=== PATIENT | female | born 1945 | race Caucasian/White ===

== ENCOUNTER 2017-01-03 08:29 | Outpatient (CLI) | payer MEDICARE, OTHER ==
[2017-01-03 19:08] LABS: ALBUMIN/GLOBULIN RATIO 1.6 (1.0-2.2); BILIRUBIN,TOTAL 0.8 mg/dL (0.2-1.0); BUN - BLOOD UREA NITROGEN 19 mg/dL (6-20); CALCIUM 8.7 mg/dL (8.5-10.3); CARBON DIOXIDE - CO2 27 mmol/L (21-32); CHLORIDE 106 mmol/L (101-111); CHOL/HDL RATIO 3.7 (<4.4); CHOLESTEROL 136 mg/dL; CREATININE 0.8 mg/dL (0.4-1.0); GFR - MDRD 71 (>89); GLUCOSE 87 mg/dL (70-100); HDL CHOLESTEROL 37 mg/dL; LDL/HDL RATIO 1.9 (<4.4); POTASSIUM 3.8 mmol/L (3.5-5.0); SODIUM 140 mmol/L (135-145); TOTAL PROTEIN 6.7 g/dL (6.7-8.2); TRIGLYCERIDES 138 mg/dL; VLDL CHOLESTEROL 28 mg/dL
== END 2017-01-03 08:30 | disposition home or self-care (01) ==
LOC: LAB.S 08:29
PROVIDERS: ATTEND Family Medicine
DX: E78.5 Hyperlipidemia, unspecified (principal); E03.9 Hypothyroidism, unspecified; I10 Essential (primary) hypertension
CPT/HCPCS: 36415; 80053; 80061; 84443

== ENCOUNTER 2017-01-07 10:27 | Outpatient (CLI) | payer MEDICARE, OTHER ==
--- NOTE | 2017-01-10 15:39 | Mammography Report ---
DIGITAL SCREENING MAMMOGRAM: 01/07/2017 CLINICAL INDICATION: A 71-year-old with history of benign biopsy, for screening. COMPARISON: 09/2015, 08/2014, 07/2013, 07/2012. TECHNIQUE: Routine CC and MLO projections were obtained of the breasts. FINDINGS: The breasts demonstrate heterogeneously dense fibroglandular parenchyma bilaterally. Coars e and punctate, typically benign calcifications are present. No suspicious masses, clustered microcal cifications, or regions of architectural distortion are identified. IMPRESSION: BENIGN FINDINGS. RECOMMENDATION: ROUTINE ANNUAL SCREENING UNLESS OTHERWISE CLINICALLY INDICATED. BIRADS CATEGORY 2-BENIGN FINDINGS. STANDARD QUALIFYING STATEMENTS 1. This examination was reviewed with the aid of Computer-Aided Detection (CAD). 2. A negative or benign imaging report should not delay biopsy if clinically suspicious findings are present. Consider surgical consultation if warranted. More than 5% of cancers are not identified by i maging. 3. Dense breasts may obscure an underlying neoplasm. JOB #: [id number] EXT JOB #:[id number]
== END 2017-01-07 10:28 | disposition home or self-care (01) ==
LOC: DI.S 10:27
PROVIDERS: ATTEND Family Medicine
DX: Z12.31 Encounter for screening mammogram for malignant neoplasm of breast (principal)
CPT/HCPCS: 77067

== ENCOUNTER 2017-01-10 08:00 | Outpatient (CLI) | payer MEDICARE, OTHER ==
[2017-01-10 18:18] LABS: THYROID STIMULATING HORMONE 5.36 uIU/mL (0.34-5.60)
== END 2017-01-10 08:01 | disposition home or self-care (01) ==
LOC: LAB.S 08:00
PROVIDERS: ATTEND Family Medicine
DX: E03.9 Hypothyroidism, unspecified (principal)
CPT/HCPCS: 36415; 84439; 84443; 84481

== ENCOUNTER 2018-01-16 09:15 | Outpatient (CLI) | payer MEDICARE, OTHER ==
--- NOTE | 2018-01-17 12:58 | DEXA Report ---
Reason: SCREENING Procedure Date: 01/16/2018 Accession Number: [id number] / [id number] Procedure: DEX - Dexa Spine and/or Hip CPT Code: FULL RESULT: EXAM: Dexa Spine and/or Hip DATE: 01/16/2018 9:55 AM CLINICAL HISTORY: SCREENING. Hormone replacement therapy. TECHNIQUE: Dual energy x-ray absorptiometry (DXA) was performed on a [employer] Capture System. Regions measured are the AP Spine, femoral neck, and if needed forearm. COMPARISON: None. In accordance with the International Society for Clinical Densitometry (ISCD) guidelines, data from previous exams may be reanalyzed using current recommendations and techniques. This is done to allow a more accurate basis for comparison with the current study. FINDINGS: The data for the lumbar spine is as follows: BMD (g/cm/cm) T-SCORE Z-SCORE REGION L1 0.984 -1.2 0.0 L2 1.228 0.2 1.4 L3 1.266 0.5 1.7 L4 1.238 0.3 1.5 TOTAL 1.185 0.0 1.2 NOTE: All evaluable vertebrae are used for classification The data for the hip is as follows: BMD (g/cm/cm) T-SCORE Z-SCORE REGION Neck 0.977 -0.4 1.0 TOTAL 1.012 0.0 1.2 NOTE: The femoral neck or total proximal femur, whichever is lowest, is used for classification. IMPRESSION: THE WHO CLASSIFICATION BASED ON THE INTERNATIONAL REFERENCE STANDARD IS NORMAL. THE FRACTURE RISK IS NOT INCREASED. RECOMMENDATION: Patients with diagnosis of osteoporosis or osteopenia should have regular bone mineral density assessment. For those eligible for Medicare, routine testing is allowed once every 2 years. Testing frequency can be increased for patients who have rapidly progressing disease or for those who are receiving medical therapy to restore bone mass. COMMENT: World Health Organization (WHO) definitions for osteoporosis and osteopenia: NORMAL BMD: T-score at -1.0 or higher, fracture risk is low OSTEOPENIA BMD: T-score between -1.0 and -2.5, fracture risk is increased. OSTEOPOROSIS BMD: T-score at -2.5 or lower, fracture risk is high. National Osteoporosis Foundation recommends: 1. Obtain adequate dietary calcium (at least 1200 mg per day) and vitamin D (400-800 international units per day). 2. Participate, as appropriate, in regular weightbearing and muscle-strengthening exercise. 3. Avoid tobacco use and reduce alcohol and caffeine intake. 4. For more detailed information see the website at www.NOF.org.
== END 2018-01-16 09:16 | disposition home or self-care (01) ==
LOC: DI 09:15
PROVIDERS: ATTEND Family Medicine
DX: Z13.820 Encounter for screening for osteoporosis (principal); N95.8 Other specified menopausal and perimenopausal disorders
CPT/HCPCS: 77080

== ENCOUNTER 2018-01-16 09:19 | Outpatient (CLI) | payer MEDICARE, OTHER ==
--- NOTE | 2018-01-17 12:17 | Mammography Report ---
Reason: SCREEN wTOMO Procedure Date: 01/16/2018 Accession Number: [id number] / [id number] Procedure: MONSERRAT - Screening Mammo w/Jr CPT Code: FULL RESULT: EXAM: Screening Mammo w/Jr DATE: 01/16/2018 10:11 AM CLINICAL HISTORY: Prior history of benign biopsy, for routine screening TECHNIQUE: Bilateral CC and MLO views were obtained. COMPARISON: 12/14/2016, 09/27/2014, 09/26/2013 and 09/19/2012 FINDINGS: The breast tissue is heterogeneously dense. On the left there is a lobulated subareolar nodular density at 9:00 with increasing calcifications CC tomographic image 43, MLO tomographic image 37, which may represent a calcifying fibroadenoma. Suggest further evaluation by magnification views and ultrasound. In the left breast approximately 7 cm from the nipple in the 9:00 position is a 1 cm nodular density best seen on MLO tomographic image 51 and CC tomographic image 42. This is been present on prior images and appears stable but suggest further evaluation by ultrasound. Otherwise no new or suspicious findings noted. IMPRESSION: Needs additional evaluation bilateral breasts. RECOMMENDATION: Additional magnification views and ultrasound right breast and ultrasound left breast. BIRADS CATEGORY 0: Needs additional evaluation. STANDARD QUALIFYING STATEMENTS: 1. This examination was not reviewed with the aid of Computer-Aided Detection (CAD). 2. A negative or benign imaging report should not delay biopsy if clinically suspicious findings are present. Consider surgical consultation if warrented. More than 5% of cancers are not identified by imaging. 3. Dense breasts may obscure an underlying neoplasm. 4. This examination was reviewed with the aid of 3D breast imaging (tomosynthesis).
== END 2018-01-16 09:20 | disposition home or self-care (01) ==
LOC: DI 09:19
PROVIDERS: ATTEND Family Medicine
DX: Z12.31 Encounter for screening mammogram for malignant neoplasm of breast (principal); R92.8 Other abnormal and inconclusive findings on diagnostic imaging of breast
CPT/HCPCS: 77063; 77067

== ENCOUNTER 2018-02-06 09:54 | Outpatient (CLI) | payer MEDICARE, OTHER ==
--- NOTE | 2018-02-06 14:19 | Mammography Report ---
Reason: FOLLOW UP TO ABNORMAL SCREENING Procedure Date: 02/06/2018 Accession Number: [id number] / [id number] Procedure: MONSERRAT - Diag Special Views Dig RT CPT Code: FULL RESULT: EXAM: Diag Special Views Dig RT DATE: 02/06/2018 11:02 AM CLINICAL HISTORY: 72-year-old female recalled from screening mammogram for findings in both breasts. TECHNIQUE: Right spot magnified CC and spot magnified MLO views were obtained. Bilateral focused breast ultrasound was performed. COMPARISON: 01/16/2018, 01/07/2017, 09/08/2015, 08/22/2014. FINDINGS: The breasts demonstrate heterogeneously dense fibroglandular parenchyma bilaterally. Spot mammographic views of the right breast confirmed the previously suspected mass with increasing coarse calcifications. Comparison over time with today's spot imaging is most compatible with involuting fibroadenoma, typically benign. Focused breast ultrasound findings of the right breast findings are compatible with the diagnosis. Focused breast ultrasound of the left breast finding identifies a simple cyst which corresponds to the mammographic finding and is concordant. This is a typically benign finding. IMPRESSION: Benign findings RECOMMENDATION: Recommend routine annual Screening mammography unless otherwise clinically indicated. BIRADS CATEGORY 2: Benign findings STANDARD QUALIFYING STATEMENTS: 1. This examination was not reviewed with the aid of Computer-Aided Detection (CAD). 2. A negative or benign imaging report should not delay biopsy if clinically suspicious findings are present. Consider surgical consultation if warrented. More than 5% of cancers are not identified by imaging. 3. Dense breasts may obscure an underlying neoplasm.
== END 2018-02-06 09:55 | disposition home or self-care (01) ==
LOC: DI 09:54
PROVIDERS: ATTEND Family Medicine
DX: R92.2 Inconclusive mammogram (principal)
CPT/HCPCS: 76642

== ENCOUNTER 2019-03-06 14:12 | Outpatient (CLI) | payer MEDICARE, OTHER ==
--- NOTE | 2019-03-07 11:54 | Mammography Report ---
Reason: ANNUAL SCREENING Procedure Date: 03/06/2019 Accession Number: [id number] / [id number] Procedure: MONSERRAT - Screening Mammo w/Jr CPT Code: Final Report FULL RESULT: EXAM: Screening Mammo w/Jr DATE: 03/06/2019 3:14 PM CLINICAL HISTORY: The patient is an asymptomatic 73-year-old female. Second degree family history of breast cancer. TECHNIQUE: (B) - Bilateral CC and MLO views were obtained. COMPARISON: 01/16/2018, 01/07/2017, 09/08/2015, 08/22/2014 and 07/22/2013 PARENCHYMAL PATTERN: (D) - The breasts demonstrate heterogeneously dense fibroglandular parenchyma bilaterally. FINDINGS: Stable bilateral nodularity. Scattered and loosely grouped calcifications again noted. There are no suspicious masses, calcifications, or areas of distortion. IMPRESSION: Benign findings. BI-RADS category 2. RECOMMENDATION: (ANNUAL) - Recommend routine annual screening mammography. BI-RADS CATEGORY: (2) - Benign Findings. STANDARD QUALIFYING STATEMENTS: 1. This examination was not reviewed with the aid of Computer-Aided Detection (CAD). 2. A negative or benign imaging report should not preclude biopsy if clinically suspicious findings are present. 3. Dense breasts may obscure an underlying neoplasm. 4. This examination was reviewed with the aid of 3D breast imaging (tomosynthesis).
== END 2019-03-06 14:13 | disposition home or self-care (01) ==
LOC: DI 14:12
PROVIDERS: ATTEND Family Medicine
DX: Z12.31 Encounter for screening mammogram for malignant neoplasm of breast (principal); Z80.3 Family history of malignant neoplasm of breast
CPT/HCPCS: 77063; 77067

== ENCOUNTER 2023-10-29 12:54 | Outpatient (CLI) | payer MEDICARE | END 2023-10-29 12:55 | disposition home or self-care (01) | LOC: DI 12:54 | PROVIDERS: ATTEND Psychiatry & Neurology Neurology | DX: R41.3 Other amnesia (principal); Z53.9 Procedure and treatment not carried out, unspecified reason ==

== ENCOUNTER 2025-03-26 09:41 | Inpatient (IN) ==
--- NOTE | 2025-03-26 11:17 | ED Physician Documentation ---
PD HPI NVD Stated complaint Stated Complaint: ABD PX, DIARRHEA, TARRY STOOL Chief complaint Chief Complaint: Abd Pain History obtained from History obtained from: Patient and Family Additonal information Additional information: 79-year-old female with a month-long history of diarrhea that has been profuse has now developed some black tarry diarrhea as well. She has not had improvement in her symptoms despite multiple home remedies. The patient has advanced dementia and is a poor historian. Most of the history is taken from the spouse who indicates that they are generally conservative and do not wish any heroics. The patient's spouse has brought the patient to the emergency department with persistent symptoms of severe diarrhea. Despite the attempt at control of diarrhea with [id number] preparations and prescription preparations no control has been successful. [place] Coma Scale Assess Eye opening: Spontaneous Verbal response: Confused Motor response: Obeys Commands Total score: 14 Review of Systems Patient has had profuse watery smelly diarrhea that has been dark and tarry despite stopping Pepto-Bismol. She has not had fever she does have cough she denies chest pain or shortness of breath. Meds/Allgy Allergies Allergies Allergy/AdvReac Type Severity Reaction Status Date / Time No Known Drug Allergies Allergy Verified 03/26/25 09:58 PFSH Active Problems All Active Problems (Updated 03/26/25 @ 15:48 by Mendoza Epps MD) Symptomatic anemia (Acute) Hypokalemia (Acute) Hyponatremia (Acute) Dementia (Chronic) Colitis (Acute) Social History Social History (Updated 03/26/25 @ 12:02 by Aruna Badillo RN) Smoking Status: Never smoker Second hand tobacco smoke exposure: No Do you dip or chew tobacco?: No Do you vape?: No Patient requests smoking cessation consult: No Initiate information on smoking cessation: No Living arrangement: At home Do you feel safe in your home environment?: Yes History of physical, verbal, emotional, or financial abuse?: No Are you sexually active?: No Exam Exam Vital Signs: Vital Signs x48h Temp Pulse Pulse Resp BP BP Pulse Ox 03/26/25 15:24 36.5 C 68 18 100/75 97 03/26/25 15:15 36.6 C 65 18 91/51 L 97 03/26/25 14:45 36.6 C 69 18 95/51 L 97 03/26/25 14:15 36.5 C 66 18 109/48 L 97 03/26/25 14:00 68 20 92/60 98 03/26/25 13:45 36.5 C 73 18 90/50 L 98 03/26/25 13:25 36.5 C 70 18 94/52 L 98 03/26/25 13:06 36.5 C 69 25 H 89/48 L 99 03/26/25 12:51 66 18 82/47 L 98 03/26/25 12:04 62 18 87/44 L 94 03/26/25 09:55 36.7 C 72 16 70/44 L 99 Pale appearing 79-year-old female with a blank stare consistent with dementia does interact immediately with good eye contact and smile. She is profoundly pale conjunctive are pale. She critically has blood pressure of 70/44 remainder of her vitals are normal. Constitutional Pale appearing with a vacant stare but interactive with a smile HENMT normocephalic, head/scalp atraumatic and hearing grossly normal bilaterally Eyes PERRL and EOMs intact bilaterally Patient has had surgery to both eyes lens implants are visible Respiratory breath sounds equal bilaterally, normal respiratory effort and clear to auscultation bilaterally Cardiovascular normal heart rate noted, regular rhythm noted and no murmur Gastrointestinal abdomen normal to inspection, abdomen soft to palpation and nontender to palpation Genitourinary no CVA tenderness Stool is dark gandhi and guaiac negative. Back/Pelvis spine normal to inspection Extremities normal to inspection Neurology senior partner II-XII intact Psychiatry mental status abnormal, orientation abnormal, thought process abnormality noted, cooperative, affect normal, psychomotor activity normal and memory abnormal Skin skin color abnormal (pale) Results Vitals Vitals: Vital Signs - 24 hr 03/26/25 09:55 03/26/25 09:57 03/26/25 12:04 Temperature 36.7 C Temperature Source Temporal Artery Scan Pulse Rate 72 62 Pulse Rate [Monitoring electrodes] Respiratory Rate 16 18 Blood Pressure 70/44 L 87/44 L Blood Pressure [Left Automatic] O2 Saturation 99 94 O2 Source Room air Room air Sedation scale Pain Intensity 6 5 03/26/25 12:51 03/26/25 13:06 03/26/25 13:25 Temperature 36.5 C 36.5 C Temperature Source Temporal Artery Scan Temporal Artery Scan Pulse Rate 66 Pulse Rate [Monitoring electrodes] 69 70 Respiratory Rate 18 25 H 18 Blood Pressure 82/47 L Blood Pressure [Left Automatic] 89/48 L 94/52 L O2 Saturation 98 99 98 O2 Source Room air Room air Room air Sedation scale 0-Fully awake 0-Fully awake Pain Intensity 0 0 03/26/25 13:45 03/26/25 14:00 03/26/25 14:15 Temperature 36.5 C 36.5 C Temperature Source Temporal Artery Scan Temporal Artery Scan Pulse Rate 68 Pulse Rate [Monitoring electrodes] 73 66 Respiratory Rate 18 20 18 Blood Pressure 92/60 Blood Pressure [Left Automatic] 90/50 L 109/48 L O2 Saturation 98 98 97 O2 Source Room air Room air Room air Sedation scale 0-Fully awake 0-Fully awake Pain Intensity 0 0 0 03/26/25 14:45 03/26/25 15:15 03/26/25 15:24 Temperature 36.6 C 36.6 C 36.5 C Temperature Source Temporal Artery Scan Temporal Artery Scan Temporal Artery Scan Pulse Rate Pulse Rate [Monitoring electrodes] 69 65 68 Respiratory Rate 18 18 18 Blood Pressure Blood Pressure [Left Automatic] 95/51 L 91/51 L 100/75 O2 Saturation 97 97 97 O2 Source Room air Room air Room air Sedation scale 0-Fully awake 0-Fully awake 0-Fully awake Pain Intensity 0 0 0 Oxygen O2 Source Room air Labs Labs: Laboratory Tests 03/26/25 03/26/25 03/26/25 10:35 10:35 11:33 WBC 5.7 RBC 2.74 L Hgb 7.1 L Hct 22.8 L MCV 83.2 MCH 25.9 L MCHC 31.1 L RDW 16.6 H Plt Count 276 MPV 8.8 Neut # (Auto) Not Reportable Lymph # (Auto) Not Reportable [place] # (Auto) Not Reportable Eos # (Auto) Not Reportable Baso # (Auto) Not Reportable Absolute Nucleated RBC Not Reportable Total Counted 100 Band Neuts % (Manual) 14 H Reactive Lymphs % (Man) 3 Abnorm Lymph % (Manual) 0 Nucleated RBC % Not Reportable Neutrophils # (Manual) 4.4 Lymphocytes # (Manual) 0.5 L Monocytes # (Manual) 0.8 Eosinophils # (Manual) 0.0 Basophils # (Manual) 0.0 Differential Comment MANUAL DIFFERENTIAL Manual Slide Review Indicated WBC Morphology 1+ TOXIC G Platelet Estimate NORMAL (130-450,000) Platelet Morphology NORMAL APPEARANCE RBC Morph Micro Appear 1+ ANISOCYTOSIS 1+ MICROCYTOSIS VBG pH 7.433 H VBG pCO2 35.9 L VBG pO2 39.4 VBG HCO3 24.2 VBG Total CO2 25.3 VBG O2 Saturation 41.0 L VBG Base Excess -0.3 Sodium 129 L Potassium 3.4 L Chloride 98 L Carbon Dioxide 24 Anion Gap 7.0 BUN 29 H Creatinine 1.1 Estimated GFR (MDRD) 48 L Glucose 113 H Lactic Acid 1.3 Calcium 7.9 L Magnesium 1.7 Total Bilirubin 0.8 AST 17 ALT 13 Alkaline Phosphatase 65 Total Protein 5.1 L Albumin 2.5 L Globulin 2.6 Albumin/Globulin Ratio 1.0 Lipase < 10 L Stl Occult Blood (IFOB) Blood Type O POSITIVE Blood Type Recheck O POSITIVE Antibody Screen NEGATIVE Crossmatch IS Only See Detail 03/26/25 14:16 WBC RBC Hgb Hct MCV MCH MCHC RDW Plt Count MPV Neut # (Auto) Lymph # (Auto) [place] # (Auto) Eos # (Auto) Baso # (Auto) Absolute Nucleated RBC Total Counted Band Neuts % (Manual) Reactive Lymphs % (Man) Abnorm Lymph % (Manual) Nucleated RBC % Neutrophils # (Manual) Lymphocytes # (Manual) Monocytes # (Manual) Eosinophils # (Manual) Basophils # (Manual) Differential Comment Manual Slide Review WBC Morphology Platelet Estimate Platelet Morphology RBC Morph Micro Appear VBG pH VBG pCO2 VBG pO2 VBG HCO3 VBG Total CO2 VBG O2 Saturation VBG Base Excess Sodium Potassium Chloride Carbon Dioxide Anion Gap BUN Creatinine Estimated GFR (MDRD) Glucose Lactic Acid Calcium Magnesium Total Bilirubin AST ALT Alkaline Phosphatase Total Protein Albumin Globulin Albumin/Globulin Ratio Lipase Stl Occult Blood (IFOB) NEGATIVE Blood Type Blood Type Recheck Antibody Screen Crossmatch IS Only Rads (name of study) CTA ab/pel bleeding study: Relevant Findings:: Prelim report reviewed and EMP independent interpretation of test (stool burden and thickened bowel wall. ) Interpretation: Impression: Segmental colitis extending from the distal descending colon through the rectum. It is relatively impressive. Consider infectious versus inflammatory causes. This portion of the colon is rarely involved by ischemic colitis. Proximal to the distal diseased segment, there is a large fecal load. No acute hemorrhage identified. Procedures IVC sono (time) 1110: Bedside IVC sono: IVC measures (cm) (0.53), Low CVP and Profound dehydration PD Medical Decision Making ED course Complexity details: reviewed old records, reviewed results, re-evaluated patient, considered differential, d/w patient and d/w family Reviewed Lab Results: We reviewed a complete blood count showing a normal white blood cell count of 5.7 a low hemoglobin and hematocrit at 7.1 and 22.8 these are decreased from most recent 19 days ago. RDW was elevated at 16.6 bands are 14% down from 17% 19 days ago. Venous blood gas shows a pH of 7.433 chemistries show low serum sodium of 129 potassium low at 3.4 chloride low at 98 BUN is elevated at 29 creatinine normal at 1.1. The BUN is similar to what the patient's had previously at 3519 days ago creatinine is similar at 1.1. Lactate is normal at 1.3 calcium is low at 7.9. These laboratory results show an increasing anemia that has reached the transfusion threshold. ED course: 79-year-old female presents to the emergency department with increasing anemia and 6 weeks of diarrhea. She is presenting with weakness. On examination the patient appears pale and consideration for transfusion is immediately made. We did initiate transfusion. Patient has some improvement. I have discussed the case with the patient's who indicates that they are conservative and would like to stay at [facility] if possible and they do not wish heroics for treatment. The patient does have advanced dementia. A bleeding scan was done which demonstrated significant colitis but no obvious source of bleeding.I believe the patient will require hospitalization for management of acute colitis. Discharge Plan Discharge Patient Disposition: 66 [facility] DC/Xfer Condition: Serious Clinical Impression: Colitis, Symptomatic anemia Dementia Qualifiers: Dementia type: unspecified type Dementia severity: severe Dementia behavioral or psychological symptom: without behavioral, psychotic, or mood disturbance or anxiety Qualified Code(s): F03.C0 - Unspecified dementia, severe, without behavioral disturbance, psychotic disturbance, mood disturbance, and anxiety
[2025-03-26 11:28] LABS: HCT - HEMATOCRIT 22.8 % (37.0-47.0); HGB - HEMOGLOBIN 7.1 g/dL (12.0-16.0); MEAN PLATELET VOLUME 8.8 fL (7.9-10.8); PLT - PLATELET COUNT 276 10^3/uL (130-450); RED CELL DISTRIBUTION WIDTH 16.6 % (12.0-15.0)
[2025-03-26 11:30] LABS: SLIDE REVIEW? Indicated
[2025-03-26 11:42] LABS: ALT ALANINE AMINOTRANSFERASE 13 IU/L (10-60); AST ASPARTATE AMINOTRANSFERASE 17 IU/L (10-42); BUN - BLOOD UREA NITROGEN 29 mg/dL (6-20); CARBON DIOXIDE - CO2 24 mmol/L (21-32); CREATININE 1.1 mg/dL (0.6-1.3); GFR - MDRD 48 (>89)
[2025-03-26] MEDS: SODIUM CHLORIDE 0.9% 1,000 ML IV STA (11:45)
[2025-03-26 11:47] LABS: ABNORMAL LYMPHS % (MANUAL) 0 %; BASOPHILS # (MANUAL) 0.0 10^3/uL (0-0.1); EOSINOPHILS # (MANUAL) 0.0 10^3/uL (0-0.7)
[2025-03-26 11:48] LABS: VBG BASE EXCESS -0.3 mmol/L (-2 - +2); VBG PCO2 35.9 mmHg (41-51); VBG PH 7.433 (7.31-7.41); VBG PO2 39.4 mmHg (25-47); VBG TOTAL CO2 25.3 mmol/L (24-29)
[2025-03-26 11:59] LABS: BAND NEUTROPHILS % (MANUAL) 14 %; LYMPHOCYTES # (MANUAL) 0.5 10^3/uL (1.5-3.5); LYMPHOCYTES % (MANUAL) 5 %; MONOCYTES # (MANUAL) 0.8 10^3/uL (0.0-1.0); NEUTROPHILS # (MANUAL) 4.4 10^3/uL (1.5-6.6); REACTIVE LYMPHS % (MANUAL) 3 %
[2025-03-26 12:02] LABS: PLATELET ESTIMATE, MANUAL NORMAL (130-450,000) (NORMAL); PLATELET MORPHOLOGY NORMAL APPEARANCE (NORMAL)
[2025-03-26 12:03] LABS: WBC MORPHOLOGY (MULTIPLE) 1+ TOXIC G (NORMAL)
[2025-03-26] MEDS: SODIUM CHLORIDE 0.9% 500 ML IV ONE (12:30)
--- NOTE | 2025-03-26 12:59 | CT Report ---
PROCEDURE: CT Angio Abdomen/Pelvis INDICATIONS: pain diarrhea CONTRAST: OMNI 300 100ML TECHNIQUE: After the administration of intravenous contrast, images were acquired from the diaphragm to the symphysis. Maximum-intensity projection (MIP) reformats were then acquired. For radiation dose reduction, the following was used: automated exposure control, adjustment of mA and/or kV according to patient size. COMPARISON: None FINDINGS: Image quality: Excellent. VESSELS: Aorta: Patent Mesenteric arteries: Celiac trunk, superior and inferior mesenteric arteries appear patent. Right pelvic arteries: Patent Left pelvic arteries: Patent CHEST: Lung bases and heart: Minimal left basilar atelectasis. ABDOMEN: Liver: No solid mass. Gallbladder and biliary tree: No radiopaque stones or wall thickening. No biliary dilation. Spleen: No splenomegaly. Pancreas: No pancreatic ductal dilation. Adrenals: No adrenal nodule. Kidneys and ureters: No hydronephrosis. No renal cystic lesion which requires follow up. No solid mass. Bowel and peritoneum: Diffuse wall thickening and edema extending from the distal descending colon through the sigmoid and transverse colon with thumbprinting in the region of the sigmoid. The appearance is unrelated to diverticulitis. Sigmoid diverticulosis is present. There is a large fecal load proximal to the sigmoid. There is radiodense contrast present within the colon and scattered areas. There are punctate radiodensities present in the rectum that are present on the noncontrast study and are not areas of acute hemorrhage. Lymph nodes: No central or retroperitoneal adenopathy. PELVIS Reproductive organs: Uterus is surgically absent. No adnexal masses. Bladder: No abnormal wall thickening, accounting for underdistension. Pelvic lymph nodes: No pelvic adenopathy by size criteria. Bones: No aggressive osseous abnormality. Other: No significant ventral or inguinal hernia. IMPRESSION: 1. Segmental colitis extending from the distal descending colon through the rectum. It is relatively impressive. Consider infectious versus inflammatory causes. This portion of the colon is rarely involved by ischemic colitis. 2. Proximal to the diseased segment, there is a large fecal load. 3. No acute hemorrhage identified. Reviewed by: Abebe Goyal MD on 03/26/2025 12:55 PM PST Approved by: Abebe Goyal MD on 03/26/2025 12:55 PM PST Station ID: [id number]
[2025-03-26 14:25] LABS: FECAL OCCULT BLOOD (FIT) NEGATIVE (NEGATIVE)
--- NOTE | 2025-03-26 15:37 | HISTORY & PHYSICAL EXAMINATION ---
Chief Complaint Chief Complaint Chief Complaint: Diarrhea History of Present Illness Admitted From Admitted From:: Home with History Obtained From History obtained from: Interview with Exam Limitations: Patient is severely demented History of Present Illness HPI Comment/Other: 79-year-old female with severe dementia who has been experiencing diarrhea for 5 weeks now. Has been reports they have tried multiple uvfj-sem-ywqahen remedies for this including Pepto and Imodium, with no effect. In fact, the diarrhea has gotten worse over the past week or so, changing in character to a dark stool that is foul-smelling. reports she is increasingly weak, but denies fever, chills, chest pain, dyspnea, urine abnormality. In the ED, chemistry panel revealed sodium 129, potassium 3.4. LFTs and lipase okay. FOBT was performed and found to be negative. Her hemoglobin was 7.1, so she was given 1 unit PRBC for symptomatic anemia. CT abdomen/pelvis was performed which showed segmental colitis extending from the distal descending colon through the rectum with large proximal fecal load. Hospitalist was contacted for observation for colitis, dehydration, multiple electrolyte abnormalities Meds/Allgy Allergies Allergies Allergy/AdvReac Type Severity Reaction Status Date / Time No Known Drug Allergies Allergy Verified 03/26/25 09:58 PFSH Active Problems All Active Problems (Updated 03/26/25 @ 15:42 by Rafa Villegas DNP) Symptomatic anemia (Acute) Hypokalemia (Acute) Hyponatremia (Acute) Dementia (Chronic) Colitis (Acute) Social History Social History (Updated 03/26/25 @ 12:02 by Aruna Badillo RN) Smoking Status: Never smoker Second hand tobacco smoke exposure: No Do you dip or chew tobacco?: No Do you vape?: No Patient requests smoking cessation consult: No Initiate information on smoking cessation: No Living arrangement: At home Do you feel safe in your home environment?: Yes History of physical, verbal, emotional, or financial abuse?: No Are you sexually active?: No POLST Patient has POLST: No Review of Systems Status of ROS: unobtainable due to mental status Exam Exam Vital Signs: Vital Signs x48h Temp Pulse Pulse Resp BP BP Pulse Ox 03/26/25 15:24 97.7 F 68 18 100/75 97 03/26/25 15:15 97.9 F 65 18 91/51 L 97 03/26/25 14:45 97.9 F 69 18 95/51 L 97 03/26/25 14:15 97.7 F 66 18 109/48 L 97 03/26/25 14:00 68 20 92/60 98 03/26/25 13:45 97.7 F 73 18 90/50 L 98 03/26/25 13:25 97.7 F 70 18 94/52 L 98 03/26/25 13:06 97.7 F 69 25 H 89/48 L 99 03/26/25 12:51 66 18 82/47 L 98 03/26/25 12:04 62 18 87/44 L 94 03/26/25 09:55 98.1 F 72 16 70/44 L 99 Elderly female, pleasantly confused Constitutional normal general appearance and no apparent distress HENMT normocephalic Eyes PERRL Respiratory breath sounds equal bilaterally, normal respiratory effort and clear to auscultation bilaterally Cardiovascular normal heart rate noted and regular rhythm noted Gastrointestinal abdomen normal to inspection Tender to palpation, especially on the left. Bowel tones present Extremities Trace BLE edema Neurology GCS 15 Psychiatry Pleasantly confused, states this is baseline Skin skin color normal Conclusion/Plan Problem List (1) Colitis: (2) Hyponatremia: (3) Hypokalemia: Plan: Plan is for all of the above Patient has had diarrhea for 5 weeks, worsening over the past week. Change in diarrhea characteristics, now dark and foul-smelling FOBT negative CT abdomen/pelvis showing acute segmental colitis from distal descending colon through rectum Recent stool culture unimpressive, will order our stool PCR, which has broader coverage Empirically starting on Zosyn Clear liquid diet for now, likely advance tomorrow LR at 75 She already received NS bolus from ER provider 40 mEq potassium chloride IV (4) Symptomatic anemia: Plan: Presented with hemoglobin 7.1 Patient appeared pale and reported weakness to ED provider, so they ordered 1 unit PRBC CBC in a.m. FOBT negative Anemia panel in a.m. (5) Dementia: Plan: Patient has history of dementia, it is severe enough that she has not recognized her of 35 years in some time. He is working on getting her placed in memory care Plan Place in observation DNR/DNI Her is her surrogate decision maker He reports to me that he has done a POLST form Lab Results Lab results reviewed: Yes 03/26/25 10:35 03/26/25 10:35 Core Measures Anticipated LOS I expect patient to be DC'd or transferred within 96 hours.: Yes DVT/VTE - Prophylaxis VTE/DVT Device ordered at admit?: Yes
[2025-03-26] MEDS ORDERED: SODIUM CHLORIDE FLUSH 0.9% 10 ML SYRINGE IVP PRN (16:41)
[2025-03-26] MEDS ORDERED: ONDANSETRON ODT 4 MG TABLET TL PRN (16:41)
[2025-03-26] MEDS ORDERED: ONDANSETRON 4 MG/2 ML VIAL IVP PRN (16:41)
[2025-03-26] MEDS: PIPERACILLIN/TAZOBACTAM 4.5 GM in SODIUM CHLORIDE 0.9% MINIBAG 100 ML IV SCH (16:50)
[2025-03-26] MEDS: LACTATED RINGERS 1,000 ML IV SCH (17:38)
[2025-03-26] MEDS: POTASSIUM CHLOR 10 MEQ/100 ML 10 MEQ/100 ML BAG IV SCH (17:38)
[2025-03-26] MEDS: SODIUM CHLORIDE FLUSH 0.9% 10 ML SYRINGE IVP SCH (18:42)
[2025-03-26] MEDS: COD LIVER OIL/ZINC OXIDE 113 GM TUBE TOP PRN (20:25)
[2025-03-27 05:55] LABS: HCT - HEMATOCRIT 24.4 % (37.0-47.0); HGB - HEMOGLOBIN 7.8 g/dL (12.0-16.0); MEAN PLATELET VOLUME 9.2 fL (7.9-10.8); PLT - PLATELET COUNT 243 10^3/uL (130-450); RED CELL DISTRIBUTION WIDTH 16.1 % (12.0-15.0)
[2025-03-27 06:01] LABS: ABNORMAL LYMPHS % (MANUAL) 0 %; BASOPHILS # (MANUAL) 0.0 10^3/uL (0-0.1); EOSINOPHILS # (MANUAL) 0.0 10^3/uL (0-0.7)
[2025-03-27 06:04] LABS: ABSOLUTE RETICS # AUTO 0.03 10^6/uL (0.020-0.110); RETICULOCYTE COUNT % (AUTO) 1.01 % (0.5-2.3)
[2025-03-27 06:09] LABS: BUN - BLOOD UREA NITROGEN 20.0 mg/dL (6-20); CARBON DIOXIDE - CO2 21.0 mmol/L (21-32); CREATININE 0.9 mg/dL (0.6-1.3); GFR - MDRD 61.0 (>89)
[2025-03-27 06:19] LABS: BAND NEUTROPHILS % (MANUAL) 16 %; LYMPHOCYTES # (MANUAL) 0.4 10^3/uL (1.5-3.5); LYMPHOCYTES % (MANUAL) 9 %; MONOCYTES # (MANUAL) 0.5 10^3/uL (0.0-1.0); NEUTROPHILS # (MANUAL) 3.8 10^3/uL (1.5-6.6)
[2025-03-27 06:20] LABS: PLATELET ESTIMATE, MANUAL NORMAL (130-450,000) (NORMAL); PLATELET MORPHOLOGY NORMAL APPEARANCE (NORMAL)
[2025-03-27] MEDS: PIPERACILLIN/TAZOBACTAM 4.5 GM in SODIUM CHLORIDE 0.9% MINIBAG 100 ML IV SCH (06:29)
[2025-03-27] MEDS: ACETAMINOPHEN 325 MG TABLET PO PRN (09:59)
[2025-03-27] MEDS ORDERED: DIATR MEGLU/DIATRIZOATE SODIUM 120 ML BOTTLE PO ONE (11:35)
--- NOTE | 2025-03-27 11:44 | PROVIDER PROGRESS NOTE ---
Subjective Prog Note Date Prog Note Date: 03/27/25 Subjective Pt reports feeling: No change Current Medications Current Medications Current Medications: Current Medications Generic Name Dose Route Start Last Admin Trade Name Louis PRN Reason Stop Dose Admin Acetaminophen 650 mg 03/26/25 16:41 03/27/25 09:59 Acetaminophen 325 Mg Tablet PO 650 mg Q4HR PRN Administration Pain 1 to 4, or Fever Bisacodyl 10 mg 03/27/25 12:00 Bisacodyl 5 Mg Tablet PO DAILY YEIMY Lactated Ringer's 1,000 mls @ 75 mls/hr 03/26/25 16:41 03/27/25 09:58 Lr IV 75 mls/hr .[id number] YEIMY Administration Piperacillin Sod/Tazobactam 100 mls @ 200 mls/hr 03/27/25 06:00 03/27/25 07:02 Sod 4.5 gm/ Sodium Chloride IV Infused Q6H YEIMY Infusion Ondansetron HCl 4 mg 03/26/25 16:41 Ondansetron Odt 4 Mg Tablet TL Q6HR PRN Nausea / Vomiting Ondansetron HCl 4 mg 03/26/25 16:41 Ondansetron 4 Mg/2 Ml Vial IVP Q6HR PRN Nausea / Vomiting Polyethylene Glycol 17 gm 03/27/25 12:00 Polyethylene Glycol 3350 17 Gm Packet PO DAILY YEIMY Sodium Chloride 10 ml 03/26/25 16:41 Sodium Chloride Flush 0.9% 10 Ml Syringe IVP PRN PRN NEEDED PER PROVIDER ORDERS Sodium Chloride 10 ml 03/26/25 17:00 03/27/25 08:28 Sodium Chloride Flush 0.9% 10 Ml Syringe IVP Not Given 0100,0900,1700 YEIMY Zinc Oxide 113 gm 03/26/25 16:42 03/26/25 20:25 Cod Liver Oil/Zinc Oxide 113 Gm Tube TOP 1 applic PRN PRN Administration Skin Care Objective Vital Signs/Intake & Output Reviewed Vital Signs: Yes Vital Signs: Vital Signs x48h Temp Pulse Resp BP Pulse Ox 03/27/25 08:00 97.9 F 88 20 82/43 L 97 03/27/25 05:24 98.2 F 89 16 104/54 L 96 Intake & Output: Intake & Output 03/24/25 03/25/25 03/26/25 03/27/25 23:59 23:59 23:59 23:59 Intake Total 3412 / 3412 1110 / 1110 Balance 3412 / 3412 1110 / 1110 Weight (kg) 46 kg Objective General Appearance: positive No acute distress and Alert Eyes Bilateral: positive Normal inspection ENT: positive ENT inspection nml Neck: positive Nml inspection Respiratory: positive Chest non-tender and No respiratory distress Cardiovascular: positive Regular rate & rhythm and No murmur Abdomen: positive Nml bowel sounds, Tenderness and Guarding Extremities: positive Non-tender and Pedal edema Neurologic/Psychiatric: positive Other (Pleasantly confused, As is her baseline) Lab Results 03/27/25 05:14 03/27/25 05:14 Other Labs: Lab Results x24hrs 03/27/25 03/27/25 03/27/25 Range/Units 05:14 05:14 05:14 WBC (4.8-10.8) x10^3/uL RBC 3.00 L (4.20-5.40) 10^6/uL Hgb 7.8 L (12.0-16.0) g/dL Hct 24.4 L (37.0-47.0) % MCV 81.1 (81.0-99.0) fL MCH 25.9 L (27.0-31.0) pg MCHC 32.0 (32.0-36.0) g/dL RDW 16.1 H (12.0-15.0) % Plt Count 243 (130-450) 10^3/uL MPV 9.2 (7.9-10.8) fL Reticulocyte % (Auto) 1.01 (0.5-2.3) % Neut # (Auto) Not Reportable Lymph # (Auto) Not Reportable Calhoun # (Auto) Not Reportable Eos # (Auto) Not Reportable Baso # (Auto) Not Reportable Absolute Nucleated RBC Not Reportable Total Counted 100 Band Neuts % (Manual) 16 H (0 - 10) % Reactive Lymphs % (Man) % Abnorm Lymph % (Manual) 0 % Nucleated RBC % Not Reportable Neutrophils # (Manual) 3.8 (1.5-6.6) 10^3/uL Lymphocytes # (Manual) 0.4 L (1.5-3.5) 10^3/uL Monocytes # (Manual) 0.5 (0.0-1.0) 10^3/uL Eosinophils # (Manual) 0.0 (0-0.7) 10^3/uL Basophils # (Manual) 0.0 (0-0.1) 10^3/uL Differential Comment MANUAL DIFFERENTIAL WBC Morphology (NORMAL) Platelet Estimate NORMAL (130-450,000) (NORMAL) Platelet Morphology NORMAL APPEARANCE (NORMAL) RBC Morph Micro Appear 1+ TARGET CELLS 1+ MICROCYTOSIS 2+ HYPOCHROMASIA (NORMAL) Absolute Retic 0.030 (0.020-0.110) 10^6/uL VBG pH (7.31-7.41) VBG pCO2 (41-51) mmHg VBG pO2 (25-47) mmHg VBG HCO3 (23-28) mmol/L VBG Total CO2 (24-29) mmol/L VBG O2 Saturation (60-80) % VBG Base Excess (-2 - +2) mmol/L Sodium 130 L (135-145) mmol/L Potassium 3.6 (3.5-4.5) mmol/L Chloride 103 (101-111) mmol/L Carbon Dioxide 21 (21-32) mmol/L Anion Gap 6.0 (6-13) BUN 20 (6-20) mg/dL Creatinine 0.9 (0.6-1.3) mg/dL Estimated GFR (MDRD) 61 L (>89) Glucose 84 (74-104) mg/dL Lactic Acid (0.5-2.2) mmol/L Calcium 7.4 L (8.5-10.3) mg/dL Magnesium (1.7-2.3) mg/dL Iron < 10 L (50-212) ug/dL TIBC 136 L (250-450) ug/dL % Saturation TNP Transferrin 97 L (203-362) mg/dL Ferritin 197.5 (11.0-306.8) ng/mL Total Bilirubin (0.2-1.0) mg/dL AST (10-42) IU/L ALT (10-60) IU/L Alkaline Phosphatase (42-121) IU/L Lactate Dehydrogenase 95 L (140-271) IU/L Total Protein (6.4-8.9) g/dL Albumin (3.2-5.5) g/dL Globulin (2.1-4.2) g/dL Albumin/Globulin Ratio (1.0-2.2) Lipase (11-82) U/L Vitamin B12 2076 H (180-914) pg/mL Stl Occult Blood (IFOB) (NEGATIVE) Blood Type Blood Type Recheck Antibody Screen Crossmatch IS Only 03/27/25 03/26/25 03/26/25 Range/Units 05:14 14:16 11:33 WBC 4.8 (4.8-10.8) x10^3/uL RBC 3.01 L (4.20-5.40) 10^6/uL Hgb (12.0-16.0) g/dL Hct (37.0-47.0) % MCV (81.0-99.0) fL MCH (27.0-31.0) pg MCHC (32.0-36.0) g/dL RDW (12.0-15.0) % Plt Count (130-450) 10^3/uL MPV (7.9-10.8) fL Reticulocyte % (Auto) (0.5-2.3) % Neut # (Auto) Lymph # (Auto) Calhoun # (Auto) Eos # (Auto) Baso # (Auto) Absolute Nucleated RBC Total Counted Band Neuts % (Manual) (0 - 10) % Reactive Lymphs % (Man) % Abnorm Lymph % (Manual) % Nucleated RBC % Neutrophils # (Manual) (1.5-6.6) 10^3/uL Lymphocytes # (Manual) (1.5-3.5) 10^3/uL Monocytes # (Manual) (0.0-1.0) 10^3/uL Eosinophils # (Manual) (0-0.7) 10^3/uL Basophils # (Manual) (0-0.1) 10^3/uL Differential Comment WBC Morphology (NORMAL) Platelet Estimate (NORMAL) Platelet Morphology (NORMAL) RBC Morph Micro Appear (NORMAL) Absolute Retic (0.020-0.110) 10^6/uL VBG pH 7.433 H (7.31-7.41) VBG pCO2 35.9 L (41-51) mmHg VBG pO2 39.4 (25-47) mmHg VBG HCO3 24.2 (23-28) mmol/L VBG Total CO2 25.3 (24-29) mmol/L VBG O2 Saturation 41.0 L (60-80) % VBG Base Excess -0.3 (-2 - +2) mmol/L Sodium (135-145) mmol/L Potassium (3.5-4.5) mmol/L Chloride (101-111) mmol/L Carbon Dioxide (21-32) mmol/L Anion Gap (6-13) BUN (6-20) mg/dL Creatinine (0.6-1.3) mg/dL Estimated GFR (MDRD) (>89) Glucose (74-104) mg/dL Lactic Acid 1.3 (0.5-2.2) mmol/L Calcium (8.5-10.3) mg/dL Magnesium (1.7-2.3) mg/dL Iron (50-212) ug/dL TIBC (250-450) ug/dL % Saturation Transferrin (203-362) mg/dL Ferritin (11.0-306.8) ng/mL Total Bilirubin (0.2-1.0) mg/dL AST (10-42) IU/L ALT (10-60) IU/L Alkaline Phosphatase (42-121) IU/L Lactate Dehydrogenase (140-271) IU/L Total Protein (6.4-8.9) g/dL Albumin (3.2-5.5) g/dL Globulin (2.1-4.2) g/dL Albumin/Globulin Ratio (1.0-2.2) Lipase (11-82) U/L Vitamin B12 (180-914) pg/mL Stl Occult Blood (IFOB) NEGATIVE (NEGATIVE) Blood Type Blood Type Recheck O POSITIVE Antibody Screen Crossmatch IS Only 03/26/25 03/26/25 Range/Units 10:35 10:35 WBC (4.8-10.8) x10^3/uL RBC (4.20-5.40) 10^6/uL Hgb (12.0-16.0) g/dL Hct (37.0-47.0) % MCV (81.0-99.0) fL MCH (27.0-31.0) pg MCHC (32.0-36.0) g/dL RDW (12.0-15.0) % Plt Count (130-450) 10^3/uL MPV (7.9-10.8) fL Reticulocyte % (Auto) (0.5-2.3) % Neut # (Auto) Not Reportable Lymph # (Auto) Not Reportable Calhoun # (Auto) Not Reportable Eos # (Auto) Not Reportable Baso # (Auto) Not Reportable Absolute Nucleated RBC Not Reportable Total Counted 100 Band Neuts % (Manual) 14 H (0 - 10) % Reactive Lymphs % (Man) 3 % Abnorm Lymph % (Manual) 0 % Nucleated RBC % Not Reportable Neutrophils # (Manual) 4.4 (1.5-6.6) 10^3/uL Lymphocytes # (Manual) 0.5 L (1.5-3.5) 10^3/uL Monocytes # (Manual) 0.8 (0.0-1.0) 10^3/uL Eosinophils # (Manual) 0.0 (0-0.7) 10^3/uL Basophils # (Manual) 0.0 (0-0.1) 10^3/uL Differential Comment MANUAL DIFFERENTIAL WBC Morphology 1+ TOXIC G (NORMAL) Platelet Estimate NORMAL (130-450,000) (NORMAL) Platelet Morphology NORMAL APPEARANCE (NORMAL) RBC Morph Micro Appear 1+ MICROCYTOSIS 1+ ANISOCYTOSIS (NORMAL) Absolute Retic (0.020-0.110) 10^6/uL VBG pH (7.31-7.41) VBG pCO2 (41-51) mmHg VBG pO2 (25-47) mmHg VBG HCO3 (23-28) mmol/L VBG Total CO2 (24-29) mmol/L VBG O2 Saturation (60-80) % VBG Base Excess (-2 - +2) mmol/L Sodium 129 L (135-145) mmol/L Potassium 3.4 L (3.5-4.5) mmol/L Chloride 98 L (101-111) mmol/L Carbon Dioxide 24 (21-32) mmol/L Anion Gap 7.0 (6-13) BUN 29 H (6-20) mg/dL Creatinine 1.1 (0.6-1.3) mg/dL Estimated GFR (MDRD) 48 L (>89) Glucose 113 H (74-104) mg/dL Lactic Acid (0.5-2.2) mmol/L Calcium 7.9 L (8.5-10.3) mg/dL Magnesium 1.7 (1.7-2.3) mg/dL Iron (50-212) ug/dL TIBC (250-450) ug/dL % Saturation Transferrin (203-362) mg/dL Ferritin (11.0-306.8) ng/mL Total Bilirubin 0.8 (0.2-1.0) mg/dL AST 17 (10-42) IU/L ALT 13 (10-60) IU/L Alkaline Phosphatase 65 (42-121) IU/L Lactate Dehydrogenase (140-271) IU/L Total Protein 5.1 L (6.4-8.9) g/dL Albumin 2.5 L (3.2-5.5) g/dL Globulin 2.6 (2.1-4.2) g/dL Albumin/Globulin Ratio 1.0 (1.0-2.2) Lipase < 10 L (11-82) U/L Vitamin B12 (180-914) pg/mL Stl Occult Blood (IFOB) (NEGATIVE) Blood Type O POSITIVE Blood Type Recheck Antibody Screen NEGATIVE Crossmatch IS Only See Detail Assessment/Plan Problem List (1) Colitis: (2) Hyponatremia: (3) Hypokalemia: Impression: Plan is for all of the above Patient has had diarrhea for 5 weeks, worsening over the past week. Change in diarrhea characteristics, now dark and foul-smelling FOBT negative CT abdomen/pelvis showing acute segmental colitis from distal descending colon through rectum Recent stool culture unimpressive, will order our stool PCR, which has broader coverage Empirically starting on Zosyn Clear liquid diet for now, likely advance tomorrow LR at 75 03/27: Potassium has improved to 3.6, continue daily BMP. I am starting a bowel regimen including Dulcolax and MiraLAX as she had significant stool burden. She is still reporting abdominal pain and is very tender to palpation on the left side, so we will maintain clear liquid diet for now. Continue Zosyn, watching for nephrotoxicity (4) Symptomatic anemia: Impression: Hemoglobin corrected to 7.8 this morning. Continue daily CBC. Anemia panel revealed low iron, but ferritin was 197. This is likely an inflammatory anemia versus a developing iron deficiency. Would recommend further outpatient follow- up (5) Dementia: Impression: Patient has history of dementia, it is severe enough that she has not recognized her of 35 years in some time. He is working on getting her placed in memory care Qualifiers: Dementia behavioral or psychological symptom: without behavioral, psychotic, or mood disturbance or anxiety Dementia severity: severe Dementia type: unspecified type Qualified Code(s): F03.C0 - Unspecified dementia, severe, without behavioral disturbance, psychotic disturbance, mood disturbance, and anxiety
[2025-03-27] MEDS: LACTATED RINGERS 500 ML IV ONE (16:10)
[2025-03-28 06:04] LABS: HCT - HEMATOCRIT 28.3 % (37.0-47.0); HGB - HEMOGLOBIN 9.0 g/dL (12.0-16.0); MEAN PLATELET VOLUME 8.6 fL (7.9-10.8); PLT - PLATELET COUNT 254 10^3/uL (130-450); RED CELL DISTRIBUTION WIDTH 16.3 % (12.0-15.0)
--- NOTE | 2025-03-28 06:08 | PHARMACY PROGRESS NOTE ---
Best Possible Medication History Admit Date and Time: 03/27/25 1349 Home Medications Medication Instructions Recorded Confirmed Type atorvastatin 10 mg tablet 10 mg PO HS 03/26/25 5 History latanoprost 0.005 % eye drops 1 drp ophthalmic (eye) Q PM 03/26/25 03/28/25 History losartan 100 mg tablet 100 mg PO DAILY 03/27/25 History Processed by: Pharmacy Medications reviewed in ED?: No Medication History completed: Yes Patient Interview: Completed Secondary Source(s): Pharmacy records and Insurance records [facility] Statement: As the person ultimately responsible for medication therapy, providers are able to order a medication from an existing home medication list in [facility] via the "Reconcile Routine" prior to Confirmation of that medication by credit support counselor. Such practice is discouraged except when the physician, in their clinical judgment, deems that a medical need exists for a medication without regard to previous use.
[2025-03-28 06:11] LABS: ABNORMAL LYMPHS % (MANUAL) 0 %; BASOPHILS # (MANUAL) 0.0 10^3/uL (0-0.1); EOSINOPHILS # (MANUAL) 0.0 10^3/uL (0-0.7)
[2025-03-28 06:16] LABS: BUN - BLOOD UREA NITROGEN 15.0 mg/dL (6-20); CARBON DIOXIDE - CO2 24.0 mmol/L (21-32); CREATININE 0.8 mg/dL (0.6-1.3); GFR - MDRD 70.0 (>89)
[2025-03-28 07:08] LABS: ADENOVIRUS F 40/41 Not Detected (Not Detected); ASTROVIRUS Not Detected (Not Detected); C DIFFICILE TOXIN A/B Not Detected (Not Detected); CAMPYLOBACTER Not Detected (Not Detected); CRYPTOSPORIDIUM Not Detected (Not Detected); CYCLOSPORA CAYETANENSIS Not Detected (Not Detected); ENTAMOEBA HISTOLYTICA Not Detected (Not Detected); ENTEROAGGREGATIVE E COLI Not Detected (Not Detected); ENTEROPATHOGENIC E COLI Not Detected (Not Detected); ENTEROTOXIGENIC E COLI Not Detected (Not Detected); GIARDIA LAMBLIA Not Detected (Not Detected); NOROVIRUS GI/GII Not Detected (Not Detected); PLESIOMONAS SHIGELLOIDES Not Detected (Not Detected); ROTAVIRUS A Not Detected (Not Detected); SALMONELLA Not Detected (Not Detected); SAPOVIRUS Not Detected (Not Detected); SHIGA-TOXIN-PRODUCING E COLI Not Detected (Not Detected); SHIGELLA/ENTEROINVASIVE E COLI Not Detected (Not Detected); VIBRIO Not Detected (Not Detected); VIBRIO CHOLERAE Not Detected (Not Detected); YERSINIA ENTEROCOLITICA Not Detected (Not Detected)
[2025-03-28 07:16] LABS: BAND NEUTROPHILS % (MANUAL) 30 %; LYMPHOCYTES # (MANUAL) 0.5 10^3/uL (1.5-3.5); LYMPHOCYTES % (MANUAL) 8 %; MONOCYTES # (MANUAL) 0.5 10^3/uL (0.0-1.0); NEUTROPHILS # (MANUAL) 4.1 10^3/uL (1.5-6.6); PLATELET ESTIMATE, MANUAL NORMAL (130-450,000) (NORMAL); RBC MORPHOLOGY (MULTIPLE) 2+ ANISOCYTOSIS (NORMAL); REACTIVE LYMPHS % (MANUAL) 2 %
[2025-03-28] MEDS ORDERED: DIATR MEGLU/DIATRIZOATE SODIUM 120 ML BOTTLE PO ONE (12:13)
--- NOTE | 2025-03-28 13:24 | Discharge Summary ---
Discharge Summary Admit Date: 03/26/25 Discharge Date: 03/28/25 Discharging Provider: Rafa Villegas Primary Care Provider: Monica Kamara Code Status: Do Not Attempt Resuscitation DIAGNOSES Discharge Diagnoses with Status of Each Condition: Colitisimproving, tolerating diet Hyponatremiaresolved Hypokalemiaresolved Symptomatic anemiaresolved Dementiachronic HPI History of Present Illness: 79-year-old female with severe dementia who has been experiencing diarrhea for 5 weeks now. Has been reports they have tried multiple [id number] remedies for this including Pepto and Imodium, with no effect. In fact, the diarrhea has gotten worse over the past week or so, changing in character to a dark stool that is foul-smelling. reports she is increasingly weak, but denies fever, chills, chest pain, dyspnea, urine abnormality. In the ED, chemistry panel revealed sodium 129, potassium 3.4. LFTs and lipase okay. FOBT was performed and found to be negative. Her hemoglobin was 7.1, so she was given 1 unit PRBC for symptomatic anemia. CT abdomen/pelvis was performed which showed segmental colitis extending from the distal descending colon through the rectum with large proximal fecal load. Hospitalist was contacted for observation for colitis, dehydration, multiple electrolyte abnormalities HOSPITAL COURSE Hospital Course: Patient was admitted in the hospital and started on IV fluids and antibiotics. WBC has remained normal throughout hospitalization, so I am discontinuing antibiotics. Her stool character has improved, and is now soft brown. CT abdomen on presentation as well as follow-up x-ray on day of discharge shows large stool burden. I am discharging patient on MiraLAX and Metamucil and have instructed her to hold off on any antidiarrheals for at least a week. Patient is being discharged home, and will be placing her in memory care on Tuesday. She has been instructed to follow-up with PCP ALLERGIES Allergies Allergy/AdvReac Type Severity Reaction Status Date / Time No Known Drug Allergies Allergy Verified 03/26/25 09:58 MEDICATIONS Ambulatory Orders Medication Instructions Recorded Confirmed atorvastatin 10 mg tablet 10 mg PO HS 03/26/25 5 latanoprost 0.005 % eye drops 1 drp ophthalmic (eye) Q PM 03/26/25 03/28/25 losartan 100 mg tablet 100 mg PO DAILY 03/27/25 polyethylene glycol 3350 17 gram 17 g PO DAILY #30 ea 03/28/25 oral powder packet psyllium husk 3.4 gram/5.4 gram 1 tbsp PO BID #660 gra ms 03/28/25 oral powder (Metamucil) PHYSICAL EXAM AT DISCHARGE Vital Signs: Vital Signs x48h Temp Pulse Resp BP Pulse Ox 03/28/25 08:00 98.4 F 80 16 105/52 L 96 03/28/25 05:46 97.7 F 77 20 92/56 L 97 Physical Exam Other/Comments: General Appearance: positive No acute distress and Alert Eyes Bilateral: positive Normal inspection ENT: positive ENT inspection nml Neck: positive Nml inspection Respiratory: positive Chest non-tender and No respiratory distress Cardiovascular: positive Regular rate & rhythm and No murmur Abdomen: positive Nml bowel sounds. Some tenderness to palpation, but I believe some of this is startle response Extremities: positive Non-tender and Pedal edema Neurologic/Psychiatric: positive Other (Pleasantly confused, As is her baseline) LABS 03/28/25 05:50 03/28/25 05:50 FOLLOW UP Follow Up: With PCP TIME SPENT Time Spent in Discharge (Minutes): 38 Discharge Plan Discharge Patient Disposition: Home, Self Care Condition: Serious Prescriptions: New Metamucil 3.4 gram/5.4 gram powder 1 tbsp PO BID Qty: 660 0RF Rx Instructions: mix into at least 8 oz of water or juice before administering polyethylene glycol 3350 17 gram Powder In Packet 17 g PO DAILY Qty: 30 0RF Continued latanoprost 0.005 % drops 1 drp ophthalmic (eye) QPM Rx Instructions: INSTILL IN BOTH EYES atorvastatin 10 mg tablet 10 mg PO HS losartan 100 mg tablet 100 mg PO DAILY Activity Restrictions: No Restrictions Diet: Regular Health Concerns: You came into the hospital with diarrhea and belly pain. I brought you in and started you on IV fluids and a clear diet to rest your bowel. Your stools are a bit more formed today, so I am sending you home. I would like for you to start a fiber supplement, I have ordered some into the pharmacy for you. The imaging we did on you shows a large stool burden throughout your colon, so I would not recommend Imodium at least for a short time Stool softeners have been sent electronically to [facility] in [place]. I will also supply paper prescription if that is easier. These medications are both also available [id number]. I would like for you to avoid any antidiarrheals for at least a week to ensure that the stool burden is reduced. Please follow- up with PCP Print Language: Divehi Patient Instructions: Colitis Stand Alone Forms: PCP List, SBIRT Follow-up Care: MONICA KAMARA ARNP [Primary Care Provider, Nurse Practitioner] Vitals documented within 30 minutes of discharge?: Yes
--- NOTE | 2025-03-28 14:04 | XRAY Report ---
PROCEDURE: XR Abdomen 1 V INDICATIONS: follow up constipation TECHNIQUE: 1 view of the abdomen were acquired. COMPARISON: CT abdomen/pelvis 03/26/2025 FINDINGS: Surgical changes and devices: None. Bowel: The bowel gas pattern is nonobstructive. The colon is distended with gas and stool Soft tissues: No masses; visualized solid organ contours appear normal in size. No suspicious abdominal calcifications. Bones: No suspicious bony abnormalities. IMPRESSION: Gas and stool filled colon, not significantly changed since prior CT 03/26/2025 Reviewed by: Imani Urbina MD, PhD on 03/28/2025 2:01 PM PST Approved by: Imani Urbina MD, PhD on 03/28/2025 2:01 PM PST Station ID: [id number]
[2025-03-28] MEDS: LACTATED RINGERS 1,000 ML IV ONE (14:22)
[2025-03-28 17:49] VITALS: BP 108/54; TEMP 97.3; O2SAT 96
== END 2025-03-28 15:30 | disposition home or self-care (01) | DRG 392 ==
LOC: ED 09:41 → MS2 09:41
PROVIDERS: ADMIT Nurse Practitioner Acute Care; ATTEND Nurse Practitioner Acute Care
DX: Z66 Do not resuscitate; F03.C0 Unspecified dementia, severe, without behavioral disturbance, psychotic disturbance, mood disturbance, and anxiety; D64.9 Anemia, unspecified; K52.9 Noninfective gastroenteritis and colitis, unspecified; E87.6 Hypokalemia; E87.1 Hypo-osmolality and hyponatremia; E86.0 Dehydration